=== PATIENT | male | born 1965 | race Caucasian/White ===

== ENCOUNTER 2017-02-27 10:16 | Emergency (ER) | payer OTHER ==
[~2017-02-27] VITALS: Ht 162.6 cm; Wt 81.6 kg
[~2017-02-27 10:16] MED LIST: [UNRECOGNIZED DRUG - REMARK]
[2017-02-27 10:35] VITALS: BP 135/91
--- NOTE | 2017-02-27 10:40 | NUR ---
89/M BIB c/o LOWER BACK PAIN, left testicle pain with swelling x 1 wk; denies dysuria denies recent injury; hx OF RIGHT inguinal hernia X 2 YRS.; RIGHT SCROTUM SWELLING NOTED AT THIS TIME. PT DENIES N/V/D; SKIN IS PINK/WARM/DRY; AAOX4 WITH EVEN AND STEADY GAIT; LUNGS CLEAR BL; HR EVEN AND REGULAR; PT DENIES ANY FEVER, CP, SOB, OR COUGH AT THIS TIME; PATIENT STATES PAIN OF 0/10 AT THIS TIME; PATIENT POSITIONED FOR COMFORT; HOB ELEVATED; BEDRAILS UP X2; BED DOWN. ER MD MADE AWARE OF PT STATUS.
--- NOTE | 2017-02-27 10:50 | NUR ---
ER MD DR BECK EVALUATING PT AT BEDSIDE
[2017-02-27] MEDS ORDERED: HYDROcodone/APAP 5/325 MG 1 TAB TAB PO ONE (11:00)
--- NOTE | 2017-02-27 11:21 | NUR ---
PT TAKEN TO US VIA W/C ACCOMPANIED BY TRANSCRIBING MACHINE OPERATOR
--- NOTE | 2017-02-27 11:58 | NUR ---
PT TAKEN TO CT VIA W/C ACCOMPANIED BY PREPARATION PLANT SUPERVISOR
[2017-02-27 13:26] VITALS: BP 129/87
--- NOTE | 2017-02-27 13:26 | NUR ---
Patient discharged with v/s stable. Written and verbal after care instructions given and explained. Patient alert, oriented and verbalized understanding of instructions. Ambulatory with steady gait. All questions addressed prior to discharge. ID band removed. Patient advised to follow up with PMD. Rx of MOTRIN, NORCO & LEVAQUIN given. Patient educated on indication of medication including possible reaction and side effects. Opportunity to ask questions provided and answered.
== END 2017-02-27 13:26 | disposition home or self-care (01) ==
LOC: MED 10:16
DX: N45.2 Orchitis (principal); N43.3 Hydrocele, unspecified; Z98.890 Other specified postprocedural states
CPT/HCPCS: 36415; 74177; 76870; 80053; 81001; 85025; 85610; 85730; 99285; Q9967

== ENCOUNTER 2020-04-30 06:54 | Inpatient (IN) | payer OTHER, SELFPAY ==
[~2020-04-30] VITALS: Ht 160 cm; Wt 75.7 kg
--- NOTE | 2020-04-30 06:56 | NUR ---
PT TAKEN TO BED 1
[2020-04-30 07:03] VITALS: BP 122/73
--- NOTE | 2020-04-30 07:10 | NUR ---
PT C/O SOB, FEVER, RINORRHEA, PRODUCTIVE COUGH X4 DAYS. BREATHING SHALLOW, LUNGS RONCHI BILTERALLY. PT TACHYPNEA AT 35 RR. PT PLACED ON 2 L NC, NOW AT 98%. PT BECOMES EXTREMELY SOB WITH TALKING. PT AFEBRILE AT THIS TIME. PT DENIES RECENT COVID EXPOSURE OR TRAVEL.
--- NOTE | 2020-04-30 07:11 | NUR ---
PT REPORTS PAIN WITH INTERMITTENT HEAVY COUGHING. 5/10 WHEN COUGHING
--- NOTE | 2020-04-30 07:20 | NUR ---
LAB AT BEDSIDE
--- NOTE | 2020-04-30 07:25 | NUR ---
COVID SWAB COLLECTED
[2020-04-30 07:39] LABS: BASOPHILS % (AUTO) 0.3 % (0.0-2.0); EOSINOPHILS % (AUTO) 0.1 % (0.0-4.0); HEMATOCRIT 37.8 % (36-52); LYMPHOCYTES # (AUTO) 1.5 K/uL (2.0-11.5); MEAN CORPUSCULAR HEMOGLOBIN 32 pg (27-31); MEAN CORPUSCULAR HGB CONC 34 g/dL (33-37); MEAN CORPUSCULAR VOLUME 93.2 fL (80-94); MONOCYTES # (AUTO) 0.5 K/uL (0.8-1.0); MONOCYTES % (AUTO) 5.7 % (1.7-9.3); NEUTROPHILS # (AUTO) 7.4 K/uL (1.8-7.7); NEUTROPHILS % (AUTO) 77.9 % (42.2-75.2); PLATELET COUNT (AUTO) 303 K/uL (140-450); RED BLOOD CELL COUNT(AUTO) 4.05 MIL/uL (4.20-6.10); RED CELL DISTRIBUTION WIDTH 13.4 % (11.6-13.7); WHITE BLOOD COUNT (AUTO) 9.5 K/uL (4.8-10.8)
--- NOTE | 2020-04-30 07:40 | NUR ---
XRAY AT BEDSIDE
--- NOTE | 2020-04-30 07:57 | NUR ---
PT HAS 500 DOLLARS WORTH OF CARDENAS ON HIM. COUNTED MONEY WITH PT. PT STATES HE WANTS TO KEEP THE CARDENAS WITH HIM UPON ADMISSION.
[2020-04-30 07:58] LABS: PROTHROMBIN TIME 11.4 secs (10.8-13.4)
[2020-04-30 08:02] LABS: ALBUMIN 2.8 g/dL (3.4-5.0); ANION GAP 12.3 (8-16); CARBON DIOXIDE 28.2 mmol/L (21-32); POTASSIUM 3.5 mmol/L (3.5-5.1); TOTAL BILIRUBIN 0.6 mg/dL (0.0-1.0)
--- NOTE | 2020-04-30 08:05 | NUR ---
PT REPORTS NO PMH, STATES HE TOOK TYLENOL YESTERDAY FOR FEVER, AFEBRILE NOW. ORAL TEMP 98.3
[2020-04-30 08:06] LABS: D-DIMER < 100 ng/ml (0-400)
[2020-04-30] MEDS ORDERED: ACETAMINOPHEN 325 MG TAB PO PRN (09:25)
[2020-04-30] MEDS ORDERED: ONDANSETRON 4 MG/2 ML VIAL IVP PRN (09:25)
--- NOTE | 2020-04-30 09:50 | NUR ---
PT RR HAVE DECREASED. RR NOW 25
[2020-04-30 10:30] VITALS: BP 101/68
--- NOTE | 2020-04-30 10:30 | NUR ---
Patient will be admitted to care of [facility]. Admited to [facility]. Will go to room 117. Belongings list completed. Report to CHRISTIN NEGRON. PT ON 2 L NC.
--- NOTE | 2020-04-30 10:30 | NUR ---
PATIENT ADMITTED TO [facility] FROM ED VIA WHEELCHAIR. CC SOB AND FEVER X 4 DAYS, DROPLET PRECAUTION OBSERVED AND IN EFFECT R/O COVID-19. PATIENT IS AWAKE AND ALERT ORIENTED X4. RESP EVEN ON ROOM AIR. PATIENT HAS MILD SOB UPON EXERTION. LUNGS CLEAR. NO NOTED DISTRESS. PATIENT DENIES OF PAIN AT THIS TIME. LEFT AC 20 G NOTED AND PATENT. PATIENT IS ADVISED ON HIS PERSONAL BELONGING OF $500 ON HIS PERSON AND PATIENT WANTED TO KEEP IT ON HIM. ED NURSE VERIFIED AMOUNT WITH PATIENT. ALL OTHER PERSONAL BELONGINGS ON NIGHT STAND. PATIENT IS AMBULATORY WITH STEADY GAIT. MRSA COLLECTED. CALL LIGHT WITHIN REACH. BED IN LOW POSITION. PLAN OF CARE DISCUSSED. PATIENT VERBALIZED UNDERSTANDING. WILL CONTINUE TO MONITOR.
[2020-04-30] MEDS: NACL 0.9% 1,000 ML IV SCH (11:37)
[2020-04-30 12:18] LABS: FREE T4 (FREE THYROXINE) 1.12 ng/dL (0.76-1.46); MAGNESIUM 2.1 mg/dL (1.8-2.4); PHOSPHORUS 2.1 mg/dL (2.5-4.9); THYROID STIMULATING HORMONE 3.59 uIU/mL (0.34-3.74)
[2020-04-30] MEDS ORDERED: AZITHROMYCIN 250 MG TAB PO SCH (14:00)
--- NOTE | 2020-04-30 14:14 | NUR ---
PATIENT IS RESTING COMFORTABLY IN BED. RESP EVEN. MILD SOB ACCOMPANYING WITH DRY COUGHS NOTED. DENIES OF PAIN AT THIS TIME. CALL LIGHT WITHIN REACH. PATIENT AMBULATED WITH STEADY GAIT TO THE BATHROOM. WILL CONTINUE TO MONITOR.
[2020-04-30] MEDS ORDERED: BENZONATATE 100 MG CAPLF PO PRN (14:25)
--- NOTE | 2020-04-30 15:20 | NUR ---
URINE SAMPLE COLLECTED. INFLUENZA A/B SAMPLE COLLECTED. ROUTINE MEDICATIONS GIVEN. PATIENT GIVEN TESSALON FOR COUGHS. FLUIDS ENCOURAGED. CALL LIGHT WITHIN REACH. WILL CONTINUE TO MONITOR. DENIES PAIN AT THIS TIME.
[2020-04-30 15:50] LABS: APPEARANCE,URINE CLEAR (CLEAR); BILIRUBIN,URINE NEGATIVE (NEGATIVE); BLOOD, URINE NEGATIVE (NEGATIVE); COLOR,URINE YELLOW (YELLOW); LEUKOCYTE ESTERASE ,URINE NEGATIVE (NEGATIVE); NITRITE, URINE NEGATIVE (NEGATIVE); UGLUCOSE NEGATIVE (NEGATIVE)
[2020-04-30 15:58] LABS: BARBITURATE, URINE NEGATIVE ng/ml (NEG <=200); BENZODIAZEPINE, URINE NEGATIVE ng/mL (NEG <=200); CANNABINOID, URINE NEGATIVE ng/mL (NEG <=50); COCAINE, URINE NEGATIVE ng/mL (NEG <=300); OPIATE, URINE NEGATIVE ng/mL (NEG <=2000); PHENCYCLIDINE SCREEN,URINE NEGATIVE ng/mL (NEG <=25)
[2020-04-30] MEDS ORDERED: SODIUM PHOS / POTASSIUM PHOS 1 PKT PDR PO SCH (16:30)
[2020-04-30] MEDS: DEXAMETHASONE 4 MG TAB PO SCH (16:41)
--- NOTE | 2020-04-30 18:20 | NUR ---
PATIENT IS SITTING UP COMFORTABLY IN BED. RESP EVEN AND UNLABORED. NO COUGHS NOTED. TESSALON IS EFFECTIVE. PATIENT DENIES OF PAIN AT THIS TIME. I/S TEACHING PROVIDED. PATIENT IS UNABLE TO PERFORM I/S EXERCISE WITHOUT COUGHING. ENCOURAGED TO TRY 10 TIMES EACH HOUR. CALL LIGHT WITHIN REACH. BED IN LOW POSITION. WILL CONTINUE TO MONITOR.
--- NOTE | 2020-04-30 19:00 | NUR ---
RECEIVED BEDSIDE REPORT FROM DAY SHIFT NURSE. PATIENT IS AWAKE, ALERT, AND COOPERATIVE. RESPIRATION EVEN UNLABORED ON 2L NC O2. NO DISTRESS NOTED. SKIN IS WARM AND DRY. IV PATENT AND INTACT. PLAN OF CARE WAS DISCUSSED. ALL SAFETY MEASURES IN PLACE. BED IS AT LOW POSITION. CALL LIGHT WITHIN REACH. WILL CONTINUE TO MONITOR.
--- NOTE | 2020-04-30 19:30 | NUR ---
ENDORSED PATIENT TO NIGHT NURSE. PATIENT IN STABLE CONDITION.
--- NOTE | 2020-04-30 20:00 | NUR ---
INITIAL ASSESSMENT DONE. PATIENT IN STABLE CONDITION. WILL CONTINUE TO MONITOR.
--- NOTE | 2020-04-30 21:00 | NUR ---
ALL SCHEDULED MEDS WERE GIVEN PER ORDER. NO ASE NOTED. WILL CONTINUE TO MONITOR.
[2020-04-30] MEDS: DOCUSATE SODIUM 100 MG GELCAP PO SCH (21:09)
[2020-04-30] MEDS: ENOXAPARIN 80 MG/0.8 ML SYR SUBQ SCH (22:28)
--- NOTE | 2020-04-30 22:33 | NUR ---
ADMINISTERED FIRST DOSE OF LOVENOX PER ORDER. WILL CONTINUE TO MONITOR.
[2020-05-01] VITALS: BP 106/64
--- NOTE | 2020-05-01 00:05 | NUR ---
VITALS WERE TAKEN. PATIENT IN STABLE CONDITION. NO DISTRESS NOTED. WILL CONTINUE TO MONITOR.
[2020-05-01] MEDS: NACL 0.9% 1,000 ML IV SCH ×3 (01:14→21:16)
--- NOTE | 2020-05-01 03:47 | NUR ---
CHECKED PATIENT. PATIENT SLEEPING RESPIRATION EVEN UNLABORED ON 2L NC O2. NO DISTRESS NOTED. WILL CONTINUE TO MONITOR.
--- NOTE | 2020-05-01 07:12 | NUR ---
ENDORSED PATIENT TO DAY SHIFT NURSE. PATIENT IN STABLE CONDITION.
[2020-05-01 07:14] LABS: BASOPHILS % (AUTO) 0.3 % (0.0-2.0); EOSINOPHILS % (AUTO) 0.1 % (0.0-4.0); HEMATOCRIT 37.7 % (36-52); HEMOGLOBIN 12.8 g/dL (12.0-18.0); LYMPHOCYTES # (AUTO) 0.8 K/uL (2.0-11.5); LYMPHOCYTES % (AUTO) 10.6 % (20.5-51.1); MEAN CORPUSCULAR HEMOGLOBIN 32 pg (27-31); MEAN CORPUSCULAR HGB CONC 34 g/dL (33-37); MEAN CORPUSCULAR VOLUME 93.1 fL (80-94); MONOCYTES # (AUTO) 0.5 K/uL (0.8-1.0); MONOCYTES % (AUTO) 6.4 % (1.7-9.3); NEUTROPHILS # (AUTO) 6.1 K/uL (1.8-7.7); NEUTROPHILS % (AUTO) 82.6 % (42.2-75.2); PLATELET COUNT (AUTO) 350 K/uL (140-450); RED BLOOD CELL COUNT(AUTO) 4.05 MIL/uL (4.20-6.10); RED CELL DISTRIBUTION WIDTH 13.4 % (11.6-13.7); WHITE BLOOD COUNT (AUTO) 7.3 K/uL (4.8-10.8)
--- NOTE | 2020-05-01 07:15 | NUR ---
RECEIVED REPORT FROM NIGHT NURSE. PATIENT IN STABLE CONDITION. PATIENT WITH O2 ON @ 2L VIA NC. BED IN LOW POSITION. CALL LIGHT WITHIN REACH.
[2020-05-01 07:38] LABS: ALBUMIN 2.7 g/dL (3.4-5.0); ANION GAP 9.7 (8-16); CARBON DIOXIDE 30.6 mmol/L (21-32); CREATININE 0.8 mg/dL (0.6-1.3); POTASSIUM 4.3 mmol/L (3.5-5.1); TOTAL BILIRUBIN 0.9 mg/dL (0.0-1.0)
[2020-05-01 07:43] LABS: MAGNESIUM 2.1 mg/dL (1.8-2.4)
[2020-05-01 08:00] VITALS: BP 102/65
[2020-05-01 08:23] LABS: CHOL/HDL RATIO 4.7 (1-4.5)
[2020-05-01] MEDS ORDERED: AZITHROMYCIN 250 MG TAB PO SCH (09:00)
[2020-05-01] MEDS: ENOXAPARIN 80 MG/0.8 ML SYR SUBQ SCH ×2 (09:05→21:08)
--- NOTE | 2020-05-01 09:08 | NUR ---
PATIENT HAS BEEN SCREENED AND CATEGORIZED MODERATE NUTRITION RISK. PATIENT WILL BE SEEN WITHIN 3-5 DAYS OF ADMISSION. 05/02/20 05/04/[address]
[2020-05-01] MEDS: ASCORBIC ACID 500 MG TAB PO SCH (09:12)
[2020-05-01] MEDS: CHOLECALCIFEROL 1,000 IU TAB PO SCH (09:13)
[2020-05-01] MEDS: DEXAMETHASONE 4 MG TAB PO SCH (09:15)
[2020-05-01] MEDS: DOCUSATE SODIUM 100 MG GELCAP PO SCH ×2 (09:16→21:07)
[2020-05-01] MEDS: ZINC SULF 220 MG CAP PO SCH (09:16)
--- NOTE | 2020-05-01 09:20 | NUR ---
PATIENT ALERT, AWAKE AND ORIENTED X4. DENIES ANY PAIN. ON O2 @ 2L VIA NC. O2 SAT 95%. AM MEDS GIVEN ORDERED. NO S/S OF DISTRESS NOTED. CALL LIGHT WITHIN REACH. NEEDS MET AT THIS TIME.
--- NOTE | 2020-05-01 11:20 | NUR ---
PATIENT IS AWAKE, ALERT AND ORIENTED X4. DENIES PAIN. NO S/S OF DISTRESS NOTED. PATIENT ON HIS CELLPHONE. O2 IN PLACE @ 2L NC. CALL LIGHT WITHIN REACH.
--- NOTE | 2020-05-01 13:30 | NUR ---
PATIENT REMAINS STABLE. PATIENT AWAKE AND VERBALLY RESPONSIVE. NO S/S OF DISTRESS NOTED.
--- NOTE | 2020-05-01 15:00 | NUR ---
PATIENT ALERT AND ORIENTED X4. DENIES ANY PAIN OR DISCOMFORT. NO SOB NOTED.
[2020-05-01 16:00] VITALS: BP 107/73
--- NOTE | 2020-05-01 17:55 | NUR ---
PATIENT REMAINS STABLE. NO S/S OF DISTRESS NOTED.
--- NOTE | 2020-05-01 19:05 | NUR ---
REPORT GIVEN TO NIGHT NURSE. PATIENT IN STABLE CONDITION.
--- NOTE | 2020-05-01 19:15 | NUR ---
RECEIVED BEDSIDE REPORT FROM DAY SHIFT NURSE. PATIENT IS AWAKE, ALERT, AND COOPERATIVE. RESPIRATION EVEN UNLABORED ON 2L NC O2. NO DISTRESS NOTED. SKIN IS WARM AND DRY. IV PATENT AND INTACT. PLAN OF CARE WAS DISCUSSED. ALL SAFETY MEASURES IN PLACE. BED IS AT LOW POSITION. CALL LIGHT WITHIN REACH AND VERBALIZES ITS USE. WILL CONTINUE TO MONITOR.
--- NOTE | 2020-05-01 20:10 | NUR ---
INITIAL ASSESSMENT DONE. VITALS WERE TAKEN. PATIENT IN STABLE CONDITION. RESPIRATION EVEN UNLABORED ON 2L NC O2. NO DISTRESS NOTED. WILL CONTINUE TO MONITOR.
--- NOTE | 2020-05-01 21:07 | NUR ---
ALL SCHEDULED MEDS WERE GIVEN PER ORDER. NO ASE NOTED. WILL CONTINUE TO MONITOR.
--- NOTE | 2020-05-01 22:31 | NUR ---
CHECKED PATIENT. PATIENT SLEEPING RESPIRATION EVEN UNLABORED ON 2L NC O2. NO DISTRESS NOTED. WILL CONTINUE TO MONITOR.
[2020-05-02] VITALS: BP 106/68
--- NOTE | 2020-05-02 00:10 | NUR ---
VITALS WERE TAKEN. PATIENT IN STABLE CONDITION. WILL CONTINUE TO MONITOR.
--- NOTE | 2020-05-02 04:10 | NUR ---
CHECKED PATIENT. PATIENT SLEEPING RESPIRATION EVEN UNLABORED ON 2L NC. NO DISTRESS NOTED. WILL CONTINUE TO MONITOR.
--- NOTE | 2020-05-02 07:23 | NUR ---
RECEIVED PATIENT FROM NIGHT NURSE. PATIENT IS AWAKE AND ALERT. RESP EVEN AND UNLABORED ON 2LNC. PATIENT IS AMBULATING TO THE BATHROOM WITH STEADY GAIT. DENIES OF ANY SOB OR PAIN AT THIS TIME. PLAN OF CARE DISCUSSED WITH PATIENT. PATIENT VERBALIZED UNDERSTANDING. CALL LIGHT WITHIN REACH. WILL CONTINUE TO MONITOR.
--- NOTE | 2020-05-02 07:23 | NUR ---
ENDORSED PATIENT TO DAY SHIFT NURSE FOR CONTINUITY OF CARE. PATIENT IN STABLE CONDITION.
[2020-05-02 08:00] VITALS: BP 113/78
[2020-05-02 08:58] LABS: BASOPHILS % (AUTO) 0.1 % (0.0-2.0); EOSINOPHILS % (AUTO) 0.3 % (0.0-4.0); HEMATOCRIT 37.5 % (36-52); HEMOGLOBIN 12.5 g/dL (12.0-18.0); LYMPHOCYTES # (AUTO) 2.2 K/uL (2.0-11.5); LYMPHOCYTES % (AUTO) 20.9 % (20.5-51.1); MEAN CORPUSCULAR HEMOGLOBIN 31 pg (27-31); MEAN CORPUSCULAR HGB CONC 33 g/dL (33-37); MONOCYTES # (AUTO) 0.9 K/uL (0.8-1.0); MONOCYTES % (AUTO) 8.5 % (1.7-9.3); NEUTROPHILS # (AUTO) 7.3 K/uL (1.8-7.7); NEUTROPHILS % (AUTO) 70.2 % (42.2-75.2); PLATELET COUNT (AUTO) 347 K/uL (140-450); RED BLOOD CELL COUNT(AUTO) 4.04 MIL/uL (4.20-6.10); RED CELL DISTRIBUTION WIDTH 13.1 % (11.6-13.7); WHITE BLOOD COUNT (AUTO) 10.4 K/uL (4.8-10.8)
[2020-05-02] MEDS: ASCORBIC ACID 500 MG TAB PO SCH (09:34)
[2020-05-02] MEDS: ZINC SULF 220 MG CAP PO SCH (09:34)
[2020-05-02] MEDS: CHOLECALCIFEROL 1,000 IU TAB PO SCH (09:34)
[2020-05-02] MEDS: DEXAMETHASONE 4 MG TAB PO SCH (09:35)
--- NOTE | 2020-05-02 09:40 | NUR ---
MORNING ROUTINE MEDICATIONS GIVEN ORDERED. PATIENT IS AWAKE AND ALERT. AMBULATORY WITH STEADY GAIT. LAC 20 PATENT, IVF NS 100ML/HR. RESP EVEN AND UNLABORED. PRESENTING WITH MILD DRY COUGHS. DENIES OF PAIN. CALL LIGHT WITHIN REACH. WILL CONTINUE TO MONITOR.
[2020-05-02 09:55] LABS: ALBUMIN 2.6 g/dL (3.4-5.0); ANION GAP 12.9 (8-16); CARBON DIOXIDE 25.6 mmol/L (21-32); CREATININE 0.7 mg/dL (0.6-1.3); PHOSPHORUS 2.4 mg/dL (2.5-4.9); POTASSIUM 3.5 mmol/L (3.5-5.1); TOTAL BILIRUBIN 0.7 mg/dL (0.0-1.0)
[2020-05-02] MEDS: ENOXAPARIN 80 MG/0.8 ML SYR SUBQ SCH ×2 (10:00→22:57)
[2020-05-02] MEDS: DOCUSATE SODIUM 100 MG GELCAP PO SCH ×2 (10:01→22:51)
[2020-05-02] MEDS: NACL 0.9% 1,000 ML IV SCH ×2 (10:02→16:46)
--- NOTE | 2020-05-02 12:25 | NUR ---
PATIENT IS RESTING COMFORTABLY IN BED. RESP EVEN AND UNLABORED ON 2L NC. PATIENT DENIES OF PAIN OR DISCOMFORT AT THIS TIME. ENCOURAGED TO USE I/S ROUTINELY. PATIENT VERBALIZED UNDERSTANDING. CALL LIGHT WITHIN REACH. WILL CONTINUE TO MONITOR.
--- NOTE | 2020-05-02 14:45 | NUR ---
PATIENT AMBULATORY WITH STEADY GAIT TO THE BATHROOM. NO DISTRESS OR SOB NOTED. UPON ADMISSION, ACCORDING TO ED NURSE, PATIENT HAS $500 IN HIS POSSESSION. PATIENT ALLOWED STAFF TO VERIFY TODAY, COUNTED $490 IN FRONT OF PATIENT. PATIENT STATED "MAYBE THE ED NURSE COUNTED WRONG, I HAD ONLY $490." WILL CONTINUE TO MONITOR.
[2020-05-02 16:00] VITALS: BP 104/65
--- NOTE | 2020-05-02 17:25 | NUR ---
PATIENT SLEEPING IN BED. O2 SAT 97%. RESP EVEN AND UNLABORED. CALL LIGHT WITHIN REACH. WILL CONTINUE TO MONITOR.
--- NOTE | 2020-05-02 19:25 | NUR ---
ENDORSED PATIENT TO NIGHT NURSE. PATIENT IN STABLE CONDITION.
--- NOTE | 2020-05-02 19:44 | NUR ---
RECEIVED REPORT FORM CHRISTIN NEGRON DAYSHIFT NURSE AT BEDSIDE FOR CONTINUITY OF CARE, PT IN STABLE CONDITION.
--- NOTE | 2020-05-02 20:30 | NUR ---
PT IN BED NO S/S OF PAIN OR DISTRESS NOTED. RESPIRATIONS EVEN AND UNLABORED ON 2 LITERS VIA N/C. T 98.3 P 68 R 20 B/P 96/53 02 97%. ALL UNIVERSAL FALLS PROTOCOL IN PLACE.
--- NOTE | 2020-05-02 21:30 | NUR ---
PT IN BED GIVEN ORDERED COLACE WELL ORDERED LOVENOX FOR DVT PREVENTION. EDUCATION REGARDING MEDICATION PROVIDED AT BEDSIDE, PT ACKNOWLEDGED UNDERSTANDING. ALL UNIVERSAL FALLLS PRECAUTIONS IN PLACE, PT HAS NO S/S OF PAIN OR DISTRESS NOTED.
--- NOTE | 2020-05-02 22:45 | NUR ---
PT AMBULATED TO BATHROOM AND BACK INDEPENDENTLY. NO S/S OF PAIN OR DISTRESS NOTED. 02 AT 2 LITERS VIA N/C. ALL UNIVERSAL [place]ALLS PRECAUTIONS IN PLACE.
[2020-05-03] VITALS: BP 99/62
--- NOTE | 2020-05-03 00:30 | NUR ---
PT IN BED AOX4 T V/S FOLLOWS: T 98.6 P 67 R 18 B/P 99/62 02 98% ON 2 LITERS VIA N/C. ALL UNIVERSAL FALLS PROTOCOL WELL DROPLET PROTOCOL IN PLACE.
--- NOTE | 2020-05-03 02:00 | NUR ---
PT SLEEPING NO S/S OF PAIN OR DISTRESS NOTED. ALL ORDERED PROTOCOL IN PLACE.
--- NOTE | 2020-05-03 04:00 | NUR ---
PT IN BED NO C/O VOICED BY PT, V/S FOLLOWS: T 98.0 P 58 R20 B/P 114/72 02 98 WITH 2 LITERS VIA N/C.
[2020-05-03] MEDS: NACL 0.9% 1,000 ML IV SCH ×2 (06:01→20:19)
--- NOTE | 2020-05-03 07:05 | NUR ---
RECEIVED BEDSIDE REPORT FROM PATCHER BOWLING BALL RN, LYDIA, FOR CONTINUITY OF CARE. PATIENT IS AAOX4, ABLE TO MAKE NEEDS KNOWN. RESP EVEN AND UNLABORED ON 2LNC. PATIENT IS AMBULATING TO THE BATHROOM WITH STEADY GAIT. IV SITE IN PLACE, PATENT AND FLUSHES WELL, RUNNING IVF PER ORDERS. DROPLET ISOLATION IN PLACE FOR + COVID-19. DENIES OF ANY SOB OR PAIN AT THIS TIME. PLAN OF CARE DISCUSSED WITH PATIENT AND VERBALIZED UNDERSTANDING. CALL LIGHT WITHIN REACH. WILL CONTINUE TO MONITOR.
[2020-05-03 08:00] VITALS: BP 92/54
--- NOTE | 2020-05-03 08:20 | NUR ---
V/S TAKEN AND IS WNL. PATIENT STATES NO PAIN, NO SIGNS OF DISTRESS NOTED. BREAKFAST TRAY BY THE BEDSIDE. WILL CONTINUE TO MONITOR.
[2020-05-03] MEDS: ASCORBIC ACID 500 MG TAB PO SCH (09:06)
[2020-05-03] MEDS: CHOLECALCIFEROL 1,000 IU TAB PO SCH (09:06)
[2020-05-03] MEDS: DOCUSATE SODIUM 100 MG GELCAP PO SCH ×2 (09:06→21:42)
[2020-05-03] MEDS: DEXAMETHASONE 4 MG TAB PO SCH (09:07)
[2020-05-03] MEDS: ZINC SULF 220 MG CAP PO SCH (09:07)
[2020-05-03] MEDS: ENOXAPARIN 80 MG/0.8 ML SYR SUBQ SCH ×2 (09:08→21:44)
--- NOTE | 2020-05-03 09:10 | NUR ---
DR. HERNDON BY THE BEDSIDE. DISCHARGE PLAN FOR TOMORROW DISCUSSED, PATIENT VERBALIZES UNDERSTANDING. WILL CONTINUE TO MONITOR.
--- NOTE | 2020-05-03 09:18 | NUR ---
MORNING MEDICATIONS GIVEN. NO SIGNS OF DISTRESS NOTED. WILL CONTINUE TO MONITOR.
--- NOTE | 2020-05-03 11:45 | NUR ---
V/S TAKEN AND WNL. PATIENT IS AWAKE AND IN BED. NO SIGNS OF DISTRESS AND PATIENT VERBALIZES NO PAIN. LUNCH TRAY BY THE BEDSIDE. WILL CONTINUE TO MONITOR.
[2020-05-03 12:50] LABS: BASOPHILS # (AUTO) 0.1 K/uL (0.00-0.22); BASOPHILS % (AUTO) 0.6 % (0.0-2.0); EOSINOPHILS # (AUTO) 0.1 K/uL (0-0.4); EOSINOPHILS % (AUTO) 0.7 % (0.0-4.0); HEMATOCRIT 37.6 % (36-52); HEMOGLOBIN 12.8 g/dL (12.0-18.0); LYMPHOCYTES # (AUTO) 1.2 K/uL (2.0-11.5); LYMPHOCYTES % (AUTO) 13.5 % (20.5-51.1); MEAN CORPUSCULAR HEMOGLOBIN 31 pg (27-31); MEAN CORPUSCULAR HGB CONC 34 g/dL (33-37); MEAN CORPUSCULAR VOLUME 92.4 fL (80-94); MONOCYTES # (AUTO) 0.5 K/uL (0.8-1.0); MONOCYTES % (AUTO) 5.6 % (1.7-9.3); NEUTROPHILS # (AUTO) 7.2 K/uL (1.8-7.7); NEUTROPHILS % (AUTO) 79.6 % (42.2-75.2); PLATELET COUNT (AUTO) 407 K/uL (140-450); RED BLOOD CELL COUNT(AUTO) 4.07 MIL/uL (4.20-6.10); RED CELL DISTRIBUTION WIDTH 12.9 % (11.6-13.7)
--- NOTE | 2020-05-03 14:42 | NUR ---
DISCHARGE PLANNING: RECEIVED AN ORDER FOR HOME O2. CONTACTED [facility] AT , ABLE TO SPEAK TO GUME TEAGUELIZZY. SHE STATED TO GO AHEAD AND SEND ORDER TO [facility]. ORDER SENT TO [facility]. WILL FOLLOW UP. Addendum: 05/03/20 at 1530 by Soni Ward CM CONTACTED [facility] AT [phone], ABLE TO SPEAK TO EVENS. SHE STATED SHE WILL FOLLOW UP AND WILL CALL ME BACK. Addendum: 05/03/20 at 0589 by Soni Ward CM RECEIVED A CALL BACK FROM DENISE OF [facility], STATING THAT THEY NEED THE LITER FLOW FOR THE OXYGEN. WILL FOLLOW UP WITH DR. GUAN. Addendum: 05/04/20 at 1206 by Mora Johnson CM FOLLOWED UP EVENS AT [facility] THE HOME 02 IS PENDING AUTH FROM THE PATIENTS INSURANCE [employer]. Addendum: 05/04/20 at 1218 by Mora Johnson CM RECEIVED NOTIFICATION THAT [facility] IS NOT CONTRACTED WITH THE PATIENTS INSURANCE, REACHED OUT TO [facility] [phone] REGARDING HOME 02. THEY HAVE NOT YET RECEIVED FAX FROM THE PATIENTS INSURANCE COMPANY, WILL FOLLOW UP WITH PRAMOD LOPEZ. Addendum: 05/04/20 at 1610 by Soni Ward CM CONTACTED [facility], ABLE TO SPEAK TO EVENS. SHE STATED THEY ARE NOT CONTRACTED WITH [facility] AND THEY TRIED CALLING FOR AUTH YESTERDAY AND NO ONE WAS PICKING UP. CONTACTED [facility] [phone], ABLE TO SPEAK TO GERARDO. PER GERARDO SHE HAS TO TRANSFER ME TO CASE MANAGEMENT. ABLE TO SPEAK TO VERO AT CASE [facility], SHE STATED THIS CASE HAVE BEEN DENIED DUE TO NO CLINICALS TO REVIEW. I TOLD HER EVEN IF THE PATIENT IS COVID POSITIVE THEY ARE DENYING IT. SHE STATED THEY NEED CLINICALS TO BE FAXED OVER TO [phone] AND REFERENCE NUMBER IS [id number] AND ATTENTION IT TO [facility]. INFORMED HER WELL THAT PATIENT WILL NEED HOME O2 UPON DISCHARGE. I LSO MENTIONED IT TO HER THAT I SPOKE TO GUME BROWN YESTERDAY AND SHE REFERRED ME TO [facility]. AND TODAY WE RECEIVED A CALL FROM [facility] STATING THAT THEY ARE NOT CONTRACTED WITH THEM. PER VERO SHE WILL TRANSFER ME TO [facility], NO ANSWER. LEFT MESSAGE. WILL FOLLOW UP. UPDATED CLINICALS FAXED TO THE PROVIDED NUMBER. Addendum: 05/04/20 at 1703 by Soni Ward CONTACTED [facility] AGAIN, CALL GOT DROPPED 3 TIMES. CALLED AGAIN, ABLE TO SPEAK TO JOSEPH, HE STATED HE WILL TRANSFER ME TO CASE MANAGEMENT. ABLE TO SPEAK TO VERO, INFORMED HER THAT WHEN SHE TRANSFERRED ME EARLIER TO [facility], IT WENT STRAIGHT TO HER VOICEMAIL. I HAVE NOT HEARD BACK FROM HER SINCE THEN. I ASKED IF SHE MIGHT BE ABLE TO HELP ME OUT, THAT I NEEDED THEIR CONTRACTED DME COMPANY. SHE STATED SHE HAS TO TRANSFER ME AGAIN TO [facility] BECAUSE SHE DID NOT WANT TO GIVE ME WRONG INFORMATION. CONTACTED JESSICA, ABLE TO SPEAK TO [facility]. SHE STATED ITS PENDING DELIVERY BUT NO ETA. I ASKED HER TO HAVE PRAMOD CALL ME BACK. PROVIDED HER OF MY CONTACT INFO. Addendum: 05/04/20 at 1709 by Soni Ward CONTACTED JESSICA, PER VOICEMAIL OFFICE IS CLOSED. FOLLOWED THE PROMPT TO CONNECT TO AFTER HOURS, ABLE TO SPEAK TO ADRIA, SHE STATED THAT IT IS IN PROCESS HOWEVER THERE IS NOT ETA. PROVIDED HER OF THE UNIT'S PHONE NUMBER FOR ANY UPDATES. Addendum: 05/05/20 at 0900 by Mora Johnson FOLLOWED UP WITH MILES [phone] FROM [facility] REGARDING PATIENT HOME O2 SHE STATED HER IDENTIFICATION AND RECORDS COMMANDER FLORES WILL REACH OUT TO ME TO CLARIFY SOME QUESTIONS. I PROVIDED MY TELEPHONE TO MILES Addendum: 05/05/20 at 0909 by Mora Johnson CM SPOKE TO FLORES FROM [facility] PROVIDED HIM WITH THE PATIENTS 'S TELEPHONE NUMBER SO HE COULD VERIFY THE PATIENTS ADDRESS. HE IS GOING TO GIVE HER A CALL AND VERIFY, ONCE VERIFIED THE HOME O2 WILL BE DISPATCHED. I ASKED IF HE HAD AN ETA BUT HE DID NOT AT THE TIME. HE SAID I COULD CALL BACK WITHIN AN HOUR TO GET AN UPDATE. Addendum: 05/05/20 at 1007 by Mora Johnson CM FOLLOWED UP WITH JESSICA AND SPOKE WITH ZORAN. THE HOME O2 ETA IS BETWEEN 2:00 PM-6:00PM. NOTIFIED JAMIL TAVERA Addendum: 05/05/20 at 1244 by Mora Johnson CM FOLLOWED UP WITH MISHA FROM JESSICA REGARDING FAX THAT WAS WE WERE SUPPOSED TO RECEIVE FOR RX. I PROVIDED HER WITH MY EMAIL WELL. WILL FOLLOW UP IF WE DO NOT RECEIVE FAX. Addendum: 05/05/20 at 1520 by Mora Johnson CM RECEIVED ORDER FORM FROM JESSICA, DR ALEXANDRE FILLED IT OUT AND SIGNED. FAXED IT TO JESSICA AND FOLLOWED UP. SPOKE TO SHALONDA THEY RECEIVED THE FORM AND WILL BE DELIVERING THE PORTABLE TO THE PATIENTS HOME TODAY. THE OXYGEN IS STILL EN ROUTE TO THE HOSPITAL WITH AN ETA OF 6:00 PM
--- NOTE | 2020-05-03 15:30 | NUR ---
PATIENT IS ASLEEP AND IN BED. NO SIGNS OF DISTRESS NOTED. WILL CONTINUE TO MONITOR.
[2020-05-03 16:00] VITALS: BP 106/61
--- NOTE | 2020-05-03 19:20 | NUR ---
ENDORSED TO GOVERNMENT AFFAIRS SPECIALIST RNFIDEL, FOR CONTINUITY OF CARE.
--- NOTE | 2020-05-03 19:21 | NUR ---
RECD. RESTING IN BED, AWAKE, A/OX4. RESPIRATION EVEN AND UNLABORED. ON 02 AT 2 LITERS VIA N/C. IV OF NS AT 70 ML/HR INFUSING, LEFT AC G20. INDEPENDENT, AMBULATORY TO THE BR. STATED HE HAS OCCASIONAL COUGH BUT NO PHLEGM. REMINDED TO USE THE INCENTIVE SPIROMETER. ENCOURAGED TO DRINK MORE FLUIDS. PLAN OF CARE FOR THE SHIFT DISCUSSED. VERBALIZED UNDERSTANDING. DENIES PAIN 0/10.
--- NOTE | 2020-05-03 21:00 | NUR ---
DISCUSSED AND REVIEWED PLAN OF CARE WITH SHELIA PARRA.
--- NOTE | 2020-05-03 21:44 | NUR ---
DUE MEDICATIONS FOR THE NIGHT GIVEN. STATED HE HAS NO PROBLEM WITH SLEEPING.
[2020-05-04] VITALS: BP 106/55
--- NOTE | 2020-05-04 | NUR ---
SLEEPING IN BED, VS STABLE.
--- NOTE | 2020-05-04 04:00 | NUR ---
CHECKED PATIENT, STILL SLEEPING COMFORTABLY IN BED.
--- NOTE | 2020-05-04 07:25 | NUR ---
STILL SLEEPING COMFORTABLY IN BED. CONDITION REMAIN STABLE. ENDORSED TO AM SHIFT NURSE FOR CONTINUITY OF CARE.
--- NOTE | 2020-05-04 07:26 | NUR ---
RECEIVED REPORT FROM ENGRAVER ORNAMENTAL DESIGN NURSE. PT IN BED. AOX4, ON 2L O2 VIA NC, NO SOB, RESPIRATIONS ARE EVEN AND UNLABORED. SKIN IS INTACT. WITH IV ON LAC 20G RUNNING NS AT 70. SAFETY PRECAUTIONS IN PLACE. ISOLATION PRECAUTION OBSERVED. CALL LIGHT WITHIN REACH. WILL CONTINUE TO MONITOR
[2020-05-04 08:00] VITALS: BP 118/67
[2020-05-04] MEDS: ENOXAPARIN 80 MG/0.8 ML SYR SUBQ SCH ×2 (09:00→20:13)
--- NOTE | 2020-05-04 09:30 | NUR ---
PT AWAKE IN BED. DUE MEDS GIVEN TOLERATED WELL.
[2020-05-04] MEDS: DOCUSATE SODIUM 100 MG GELCAP PO SCH ×2 (09:53→20:13)
[2020-05-04] MEDS: DEXAMETHASONE 4 MG TAB PO SCH (09:53)
[2020-05-04] MEDS: ZINC SULF 220 MG CAP PO SCH (09:53)
[2020-05-04] MEDS: ASCORBIC ACID 500 MG TAB PO SCH (09:53)
[2020-05-04] MEDS: CHOLECALCIFEROL 1,000 IU TAB PO SCH (09:53)
--- NOTE | 2020-05-04 10:15 | NUR ---
DISCHARGE ORDER NOTED. NOTIFIED PT ABOUT POSSIBLE DISCHARGE TODAY, JUST WAITING FOR HOME O2 SETUP BEFORE PT CAN BE DISCHARGED
--- NOTE | 2020-05-04 10:30 | NUR ---
C.O.D. BILLER NOTE: Patient's Orientation Person Situation Place Time Information Provided By LITTLE COFFMAN Comments SW WAS UNABLE TO MEET PATIENT AT BEDSIDE DUE TO MEDICAL CONDITION. Jackscrew Man, Realtionship and Phone Number LITTLE COFFMAN SIGNIFICANT OTHER [phone] Healthcare Power of Manufacturing Lead No Does Patient Have a POLST No Identifying Problems No Social Work Triggers Is A Social Work Consult Needed No Mandate Report Filed No Explanation Of Identifying Problems PATIENT IS A 54-YEAR-OLD MALE ADMITTED FOR RESPIRATORY DISTRESS. PATIENT HAS NO PERTINENT PMHX. Admitted From Home Pre-Admission Level Of Functioning Status Independent/Ambulatory Prior Resources/Services Used In Last 12 Months No Prior Resources Used Prior DME No Prior DME Used Living Situation Lives With Friend/Other House Rents A Room Patient Had Caregiver No Home Support No Caregiver Issues Financial Issues No Known Financial Issue Factors/Needs No D/C Needs Identified Pt/Rep Participated In Discharge Plan Yes Patient/Family Agress With Discharge Plan Yes Discharge Plan Comments TENTATIVE DISCHARGE PLAN IS FOR PATIENT TO RETURN HOME. DC Plan Status Initiated
[2020-05-04] MEDS: NACL 0.9% 1,000 ML IV SCH (10:37)
[2020-05-04] MEDS ORDERED: VITD1000 PO (11:27)
[2020-05-04] MEDS ORDERED: VITC500 PO (11:27)
[2020-05-04] MEDS ORDERED: DEC4 PO (11:27)
[2020-05-04] MEDS ORDERED: ZINC220C28 PO (11:27)
[2020-05-04] MEDS ORDERED: APIX2.5 PO (11:27)
[2020-05-04] MEDS ORDERED: ASPI-1822 PO (12:01)
--- NOTE | 2020-05-04 12:45 | NUR ---
PT IN BED EATING LUNCH. NO C/O PAIN, NO SOB, AFEBRILE. ON O2 2L VIA NC
--- NOTE | 2020-05-04 15:21 | NUR ---
PT AWAKE IN BED. JUST CAME BACK FROM THE BATHROOM. NO COMPLAINTS AT THIS TIME
[2020-05-04 15:33] VITALS: BP 106/55
--- NOTE | 2020-05-04 17:10 | NUR ---
PT IN BED. NO S/S OF DISTRESS, NO C/O PAIN. CALL LIGHT WITHIN REACH
--- NOTE | 2020-05-04 18:42 | NUR ---
PT IN STABLE CONDITION. WILL ENDORSE TO NEXT SHIFT FOR CONTINUITY OF CARE
--- NOTE | 2020-05-04 19:10 | NUR ---
RECEIVED BEDSIDE REPORT FROM DAY SHIFT NURSE. PT IS A&O X 4 ON 2 L NC. PT HAS A DRY COUHG, NO SOB, NO LABORED BREATHING. CHEST RISE IS SYMMETRICAL. PT IS COVID 19 POSITIVE. PLAN IS TO DC HOME WHEN PT GETS OXYGEN DELIVERED TO HOME. PT IS CONTINENT AND AMBULATORY. RIGHT AC 20 GAUGE NS AT 70 ML PER HOUR PER DOCTOR ORDER. IV IS INTACT AND PATENT. NO SIGNS OF DISTRESS. PLAN WAS DISCUSSED AND WILL CONTINUE TO FOLLOW CURRENT PLAN OF CARE. BED IS IN LOWEST POSITION AND CALL LIGHT IS WITHIN REACH.
--- NOTE | 2020-05-04 21:00 | NUR ---
PT IS AWAKE AND ALERT. A&O X 4. NO SOB OR LABORED BREATHING NOTED. PT IS IN STABLE CONDITION. WILL CONTINUE TO MONITOR.
--- NOTE | 2020-05-04 23:00 | NUR ---
PT IS SLEEPING AND CALM IN SEMI FOWLERS POSITION. CHEST RISE IS SYMMETRICAL. PT IS ON 2L NC WITH O2 SAT OF 97%. NO DISTRESSED NOTED AT THIS TIME. BED IS IN LOWEST POSITION AND CALL LIGHT IS WITHIN REACH.
[2020-05-05] VITALS: BP 100/54
[2020-05-05] MEDS: NACL 0.9% 1,000 ML IV SCH (00:55)
--- NOTE | 2020-05-05 01:00 | NUR ---
PT IS ASLEEP AND STABLE AT THIS TIME. IV IS INFUSING NS AT 70 ML PER HOUR PER ORDER AND IS PATENT. NO APPARENT SIGNS OF DISTRESS. WILL CONTINUE TO MONITOR.
--- NOTE | 2020-05-05 03:00 | NUR ---
PT IS SLEEPING IN SEMI FOWLERS POSITION. NO DISTRESS NOTED. BED IS IN THE LOWEST POSITION AND CALL LIGHT IS WITHIN REACH.
--- NOTE | 2020-05-05 05:00 | NUR ---
ROUNDED ON THE PT. HE IS A&O X4. NO RESPIRATORY DISTRESS. AWAKE AND ALERT. PT IS ON 2L NC AND TOLERATING THE OXYGEN WELL. PT IS AMBULATORY INDEPENDENTLY. WENT TO THE BATHROOM ON HIS OWN. WILL CONTINUE TO MONITOR.
--- NOTE | 2020-05-05 05:17 | NUR ---
PT IS SLEEPING. NO DISTRESS NOTED. PT IS ON 2L NC WITH O2 SATURATION AT 98%. PT IS STABLE AT THIS TIME.
[2020-05-05 07:29] LABS: BASOPHILS % (AUTO) 0.2 % (0.0-2.0); EOSINOPHILS # (AUTO) 0.1 K/uL (0-0.4); HEMOGLOBIN 12.5 g/dL (12.0-18.0); LYMPHOCYTES # (AUTO) 2.8 K/uL (2.0-11.5); LYMPHOCYTES % (AUTO) 28.3 % (20.5-51.1); MEAN CORPUSCULAR HEMOGLOBIN 31 pg (27-31); MEAN CORPUSCULAR HGB CONC 34 g/dL (33-37); MEAN CORPUSCULAR VOLUME 93.3 fL (80-94); MONOCYTES # (AUTO) 0.9 K/uL (0.8-1.0); MONOCYTES % (AUTO) 9.2 % (1.7-9.3); NEUTROPHILS # (AUTO) 5.9 K/uL (1.8-7.7); NEUTROPHILS % (AUTO) 61.3 % (42.2-75.2); PLATELET COUNT (AUTO) 452 K/uL (140-450); RED BLOOD CELL COUNT(AUTO) 3.97 MIL/uL (4.20-6.10); RED CELL DISTRIBUTION WIDTH 13.1 % (11.6-13.7); WHITE BLOOD COUNT (AUTO) 9.7 K/uL (4.8-10.8)
--- NOTE | 2020-05-05 07:30 | NUR ---
ENDORSED PATIENT TO DAY SHIFT NURSE. PT IS STABLE AT THIS TIME. PLAN OF CARE DISCUSSED.
[2020-05-05 07:53] LABS: ALBUMIN 2.6 g/dL (3.4-5.0); ANION GAP 11.5 (8-16); CARBON DIOXIDE 27.2 mmol/L (21-32); CREATININE 0.8 mg/dL (0.6-1.3); PHOSPHORUS 3.3 mg/dL (2.5-4.9); POTASSIUM 3.7 mmol/L (3.5-5.1); TOTAL BILIRUBIN 0.5 mg/dL (0.0-1.0)
[2020-05-05 08:00] VITALS: BP 95/62
[2020-05-05] MEDS: CHOLECALCIFEROL 1,000 IU TAB PO SCH (09:01)
[2020-05-05] MEDS: DOCUSATE SODIUM 100 MG GELCAP PO SCH (09:01)
[2020-05-05] MEDS: ASCORBIC ACID 500 MG TAB PO SCH (09:02)
[2020-05-05] MEDS: DEXAMETHASONE 4 MG TAB PO SCH (09:03)
[2020-05-05] MEDS: ZINC SULF 220 MG CAP PO SCH (09:03)
[2020-05-05] MEDS: ENOXAPARIN 80 MG/0.8 ML SYR SUBQ SCH (09:08)
--- NOTE | 2020-05-05 17:57 | NUR ---
PATIENT DISCHARGED HOME WITH HOME OXYGEN. ALL D/C INSTRUCTION GIVEN. iv D/C. PATIEBNT HOME MEDS DISCUSSED. LEFT WITH IN STABLE CONDITION.
== END 2020-05-05 17:30 | disposition home or self-care (01) | DRG 177 ==
LOC: MED 06:54 → EEVIPCON 06:54 → MTU 09:29
PROVIDERS: ADMIT General Practice; ATTEND General Practice
DX: U07.1 COVID-19 (principal); J12.89 Other viral pneumonia; J96.01 Acute respiratory failure with hypoxia; E43 Unspecified severe protein-calorie malnutrition; E83.39 Other disorders of phosphorus metabolism; Z68.29 Body mass index [BMI] 29.0-29.9, adult
CPT/HCPCS: 36415; 36600; 71045; 80053; 80305; 81003; 82150; 82550; 82728; 82803; 83036; 83605; 83615; 83690; 83735; 83880; 84100; 84439; 84443; 84484; 85025; 85379; 85384; 85610; 85651; 85730; 86140; 87081; 87804; 93005; 99291; J0696; J1650; J7030; J7060; Q0092; U0003-CS

== ENCOUNTER 2022-05-03 06:35 | Emergency (ER) | payer SELFPAY ==
[~2022-05-03] VITALS: Ht 160 cm; Wt 89.8 kg
[~2022-05-03 06:35] MED LIST changes: +ASPI-1822 PO; +CHOL100012 PO; +DEC4 PO; +VITC500 PO; +ZINC220C28 PO; -[UNRECOGNIZED DRUG - REMARK]
[2022-05-03 06:42] VITALS: BP 155/90
--- NOTE | 2022-05-03 06:50 | NUR ---
TO BED 12 FOLLOWING TRIAGE
[2022-05-03] MEDS: KETOROLAC 30 MG/ML VIAL IM ONE (07:15)
--- NOTE | 2022-05-03 07:19 | NUR ---
Pt report given to Sandrine NEGRON. Transfer of care at this time.
--- NOTE | 2022-05-03 07:21 | NUR ---
RECEIVED REPORT FROM STEVIE RN, TRANSFER OF CARE AT THIS TIME. PT SITTING IN BED AT THIS TIME HOLDING HIS ARM. PT A/O X4, EVEN AND UNLABORED RESPIRATIONS NOTED.
[2022-05-03] MEDS ORDERED: NAPR-54 PO (08:15)
[2022-05-03] MEDS ORDERED: LID5T TP (08:15)
--- NOTE | 2022-05-03 08:22 | NUR ---
PER ERMD ORDERS, A LARGE SLING WAS APPLIED TO THE RIGHT ARM OF THE PT. SLING WAS ADJUSTED TO PTS COMFORT WITH ELBOW BENT IN 90 DEGREE ANGLE. +CMS BEOFORE/AFTER. PT DID NOT COMPLAIN OF ANY PAIN OR DISCOMFORT. ERMD NOTIFIED
--- NOTE | 2022-05-03 08:51 | NUR ---
Patient discharged with v/s stable. Written and verbal after care instructions ABOUT PINCHED NERVE, ROTATOR CUFF TENDINITIS AND TENNIS ELBOW given and explained. Patient alert, oriented and verbalized understanding of instructions. Ambulatory with steady gait. All questions addressed prior to discharge. ID band removed. Patient advised to follow up with PMD. Rx of NAPROXEN AND LIDOCAINE PATCH given. Patient educated on indication of medication including possible reaction and side effects. Opportunity to ask questions provided and answered.
== END 2022-05-03 08:51 | disposition home or self-care (01) ==
LOC: MED 06:35
DX: S46.001A Unspecified injury of muscle(s) and tendon(s) of the rotator cuff of right shoulder, initial encounter (principal); I10 Essential (primary) hypertension; Z98.890 Other specified postprocedural states; Z72.89 Other problems related to lifestyle; X58.XXXA Exposure to other specified factors, initial encounter; Y93.89 Activity, other specified; Y92.89 Other specified places as the place of occurrence of the external cause; Y99.8 Other external cause status
CPT/HCPCS: 73030; 73080; 96372; 99284; J1885; Q0092

== ENCOUNTER 2023-03-17 12:03 | Emergency (ER) | payer SELFPAY ==
[~2023-03-17] VITALS: Ht 160 cm; Wt 89.4 kg
[~2023-03-17 12:03] MED LIST changes: +LID5T TP; +NAPR-54 PO
[2023-03-17 12:12] VITALS: BP 153/91
--- NOTE | 2023-03-17 13:44 | NUR ---
PT BACK FROM US AND TAKEN TO ER BED 6
--- NOTE | 2023-03-17 13:45 | NUR ---
57YO MALE PT C/O INCREASED R TESTICULAR PAIN [id number]. PAIN AT MOST ON MOVEMENT. REPORTS CHRONIC PAIN W/ RADIATION FROM RL BACK TO R LEG. STATES OCCASIONAL NUMBING IN R LEG. PT RECENTLY SEEN FOR S/S AND HAD US ON 01/2023 - DX: HYDROCELE .DENIES DYSURIA, RETENTION, N/V/D, FEVER, CHILL OR TAKING MEDICATION. PT AAOX4, AMB USING CANE. HOB POSITIONED PER COMFORT HX: HTN NKA
--- NOTE | 2023-03-17 13:55 | NUR ---
MD LIRA AT BEDSIDE FOR EVALUATION
[2023-03-17 14:01] LABS: APPEARANCE,URINE CLEAR (CLEAR); BILIRUBIN,URINE 3+ (NEGATIVE); BLOOD, URINE NEGATIVE (NEGATIVE); COLOR,URINE YELLOW (YELLOW); LEUKOCYTE ESTERASE ,URINE NEGATIVE (NEGATIVE); NITRITE, URINE NEGATIVE (NEGATIVE); PH,URINE 6.5 (5.0-9.0); UGLUCOSE NEGATIVE (NEGATIVE)
[2023-03-17] MEDS ORDERED: KETOROLAC 15 MG/ML VIAL IM ONE (14:20)
[2023-03-17] MEDS ORDERED: IBUP-2213 PO (14:23)
[2023-03-17 14:28] VITALS: BP 145/80
[2023-03-17] MEDS ORDERED: HYDROcodone/APAP 5/325 MG 1 TAB TAB PO ONE (14:45)
--- NOTE | 2023-03-17 14:56 | NUR ---
Patient discharged with v/s stable. Written and verbal after care instructions FOR HYDROCELE given and explained. Patient alert, oriented and verbalized understanding of instructions. Ambulatory with steady gait. All questions addressed prior to discharge. ID band removed. Patient advised to follow up with PMD. Rx of IBUPROFEN given. Opportunity to ask questions provided and answered.
== END 2023-03-17 14:56 | disposition home or self-care (01) ==
LOC: MED 12:03
DX: N43.2 Other hydrocele (principal); N50.811 Right testicular pain; N18.9 Chronic kidney disease, unspecified; Z79.899 Other long term (current) drug therapy
CPT/HCPCS: 76870; 81003; 96372; 99285; J1885; Q0092